=== PATIENT | female | born 1985 | race Caucasian/White ===

== ENCOUNTER 2024-07-26 08:56 | Observation (INO) | payer BC, OTHER ==
[2024-07-26 09:40] LABS: Hematocrit 30.6 % (36.0-47.0); Mean Corpuscular HGB CONC 32.7 g/dL (32.0-36.0); Mean Corpuscular Hemoglobin 25.8 pg (27.0-31.0); Mean Corpuscular Volume 78.9 fL (78.0-98.0); Mean Platelet Volume 8.7 fL (7.4-10.4); Platelet Count 138 10x3/uL (130-400); RBC Distribution Width 16.5 % (11.5-14.5); Red Blood Cell (RBC) Count 3.88 mill/uL (4.20-5.40)
[2024-07-26 09:59] LABS: BHCG - Serum Negative (NEGATIVE); Pregs Control Background? CLEAR/WHITE (CLR/WHITE); Pregs Control Bar Appear? YES (CONTROL BAR)
[2024-07-26 10:04] LABS: Band 6 % (5-11); Eosinophils 3 % (0-10); Hypochromia SLIGHT = 6-15 cells HPF (0-5); Lymphocytes 27 % (21-51); Metamyelocyte 4 % (0-0); Monocytes 2 % (0-10); Myelocyte 3 % (0-0); Neutrophil 47 % (42-75); Platelet Adequacy Comment Platelets Normal; Poikilocytosis SLIGHT = 6-15 cells HPF (0-5); Polychromasia SLIGHT = 2-3 cells HPF (0-2); Reactive Lymphocytes 6 % (0-10)
[2024-07-26 10:06] LABS: ALT (SGPT) 58 U/L (8-55); AST (SGOT) 40 U/L (5-34); Albumin 3.3 g/dL (3.5-5.0); Alkaline Phosphatase 90 U/L (40-110); Anion Gap 16 mmol/L (10-20); BUN (Urea Nitrogen) 6 mg/dL (7.0-18.7); Bilirubin, Total 0.9 mg/dL (0.2-1.2); Calc. Creatinine Clearance 0 mL/min (70-130); Calcium 9.9 mg/dL (7.8-10.44); Carbon Dioxide 27 mmol/L (22-29); Chloride 93 mmol/L (98-107); Estimated GFR 102; Globulin 5.3 g/dL (2.4-3.5); Glucose 109 mg/dL (70-105); Lipase 29 U/L (8-78); Magnesium 1.3 mg/dL (1.6-2.6); Protein, Total 8.6 g/dL (6.0-8.3); Sodium 133 mmol/L (136-145)
[2024-07-26] MEDS ORDERED: Potassium Bicarbonate/Cit Ac 20 MEQ TAB ONE (10:19)
[2024-07-26] MEDS ORDERED: Lidocaine Viscous Sol 2% 15 ml UD Cup ONE (10:19)
[2024-07-26] MEDS ORDERED: Mag-Al 1200 mg/1200 mg/30 ML UDCUP ONE (10:19)
[2024-07-26] MEDS ORDERED: Magnesium 2 GM/50 ML BAG (IN WATER) ONE (10:19)
[2024-07-26] MEDS ORDERED: Famotidine/PF 20 mg/2ml Vial ONE (10:20)
[2024-07-26] MEDS ORDERED: NS 0.9% w/ 20 MEQ KCL 1,000 ML ONE (10:20)
[2024-07-26 10:21] LABS: Troponin I Less than 0.010 ng/mL (< 0.028)
[2024-07-26] MEDS ORDERED: Promethazine HCl 25 MG/ML VIAL IM PRN (11:36)
[2024-07-26 12:12] VITALS: BMI 36.1
[2024-07-26] MEDS: Lorazepam 2 MG/ML VIAL SLOW IVP PRN (13:24)
[2024-07-26] MEDS: Magnesium 2 GM/50 ML(in water) 2 GM in Premix 1 BAG IVPB SCH (14:11)
[2024-07-26] MEDS: NS 0.9% w/ 20 MEQ KCL 1,000 ML/1,000 ML BAG IV SCH (15:15)
[2024-07-26] MEDS: Loperamide HCl 2 MG CAP PO PRN (18:06)
[2024-07-26] MEDS: Famotidine/PF 20 mg/2ml Vial SLOW IVP SCH (21:10)
[2024-07-27] MEDS: Acetaminophen 325 MG TAB PO PRN (01:37)
[2024-07-27 05:03] LABS: ALT (SGPT) 40 U/L (8-55); AST (SGOT) 29 U/L (5-34); Albumin 2.7 g/dL (3.5-5.0); Alkaline Phosphatase 66 U/L (40-110); Anion Gap 11 mmol/L (10-20); BUN (Urea Nitrogen) Less than 4 mg/dL (7.0-18.7); Bilirubin, Total 0.4 mg/dL (0.2-1.2); Calc. Creatinine Clearance 174 mL/min (70-130); Calcium 8.5 mg/dL (7.8-10.44); Carbon Dioxide 24 mmol/L (22-29); Chloride 103 mmol/L (98-107); Estimated GFR 114; Globulin 4.3 g/dL (2.4-3.5); Glucose 93 mg/dL (70-105); Magnesium 1.9 mg/dL (1.6-2.6); Potassium 3.7 mmol/L (3.5-5.1); Sodium 134 mmol/L (136-145)
[2024-07-27] MEDS: Enoxaparin 40 MG (0.4 mL) SYRINGE SC SCH (08:16)
[2024-07-27] MEDS: Diphenoxylate HCl/Atropine Tablet PO PRN (08:17)
[2024-07-27 12:43] VITALS: BP 127/81; TEMP 99
== END 2024-07-27 18:07 | disposition home or self-care (01) ==
LOC: ERS 08:56 → OBS 10:46
PROVIDERS: ADMIT Student in an Organized Health Care Education/Training Program; ATTEND Internal Medicine Critical Care Medicine
DX: R11.2 Nausea with vomiting, unspecified (principal); R94.31 Abnormal electrocardiogram [ECG] [EKG]; E87.6 Hypokalemia; E83.42 Hypomagnesemia; I10 Essential (primary) hypertension; F41.9 Anxiety disorder, unspecified; C50.919 Malignant neoplasm of unspecified site of unspecified female breast; Z79.899 Other long term (current) drug therapy
CPT/HCPCS: 36415; 80053; 83690; 83735; 84484; 84703; 85025; 93005; 96366; 96374; 96375; 96376; G0378; J1650; J2060; J3475; J3480; J3490